=== PATIENT | female | born 1975 | race African-American/Black ===

== ENCOUNTER 2017-03-24 00:34 | Emergency (ER) | payer OTHER ==
[~2017-03-24] VITALS: Ht 157.5 cm; Wt 59.0 kg
[2017-03-24] MEDS ORDERED: NKM (00:40)
[2017-03-24 00:45] VITALS: BP 150/91
[2017-03-24] MEDS ORDERED: AMOXICILLIN500 MG ORAL (01:01)
[2017-03-24] MEDS ORDERED: IBUPROFEN600 MG ORAL (01:01)
[2017-03-24 01:05] VITALS: BP 150/91
--- NOTE | 2017-03-24 01:57 | Emergency Room Report ---
History of Present Illness General Chief Complaint: Earache Source: Patient Present Illness HPI 41-year-old female presents ED complaining of left ear pain. Started 3 days ago. States she has history of frequent ear infections. Was prescribed antibiotics for an ear infection approximately 4 months ago. Patient was told that she needs to followup with ENT as outpatient. Has not scheduled appointment yet. Denies fevers or chills. Denies cough. Denies sick contacts or recent travel. No other aggravating or leading factors. Denies any other associated symptom Allergies: Coded Allergies: No Known Allergies (Unverified , 03/24/17) Patient History Past Medical History: arrhyth Past Surgical History: none Pertinent Family History: none Social History: Denies: smoking, alcohol use, drug use Last Menstrual Period: 1 week ago Now: No Immunizations: UTD Reviewed Nursing Documentation: PMH: Agreed, PSxH: Agreed Nursing Documentation-PMH Past Medical History: No History, Except For Hx Cardiac Problems: Yes - SVT Hx Gastrointestinal Problems: No - Ovarian cyst Review of Systems All Other Systems: negative except mentioned in HPI Physical Exam Vital Signs Date Time Temp Pulse Resp B/P (MAP) Pulse Ox O2 Delivery O2 Flow Rate FiO2 03/24/17 00:37 98.1 99 15 150/91 98 Room Air Sp02 EP Interpretation: reviewed, normal General Appearance: no apparent distress, alert, GCS 15, non-toxic Head: normocephalic Eyes: bilateral eye normal inspection, bilateral eye PERRL ENT: hearing grossly normal, normal pharynx, no angioedema, normal voice, other - L TM poor light reflex Neck: full range of motion, supple/symm/no masses Respiratory: normal inspection Cardiovascular #1: normal inspection Gastrointestinal: normal inspection Rectal: deferred Genitourinary: no CVA tenderness Musculoskeletal: normal inspection Neurologic: alert, oriented x3, responsive, motor strength/tone normal, sensory intact, speech normal Psychiatric: normal inspection Skin: normal inspection Lymphatic: normal inspection Medical Decision Making Diagnostic Impression: Primary Impression: Otitis media Qualified Codes: H66.92 - Otitis media, unspecified, left ear ER Course Hospital Course 41-year-old F presents to ED with pain L ear. no fever. Differential diagnoses include: TM perforation, otitis externa, otitis media Clinical course Patient placed on stretcher. After initial history, physical exam reveals a young male in no acute distress. L TM poor light reflex. R TM unremarkable. Remainder of physical exam unremarkable. clinical findings consistent with otitis media Given the frequent history of ear infections I do recommend patient follow up with ENT as outpatient. Patient agrees Diagnosis - otitis media Stable and discharged to home with Rx amoxicillin, motrin. Followup with PMD. Return to ED if symptoms recur or worsen Last Vital Signs Date Time Temp Pulse Resp B/P (MAP) Pulse Ox O2 Delivery O2 Flow Rate FiO2 03/24/17 01:05 98.1 99 15 150/91 98 Room Air Status: improved Disposition: HOME, SELF-CARE Condition: Stable Scripts Ibuprofen* (MOTRIN*) 600 Mg Tablet 600 MG ORAL Q8H Y for For Pain, #30 TAB 0 Refills Prov: SANIA WHITLEY M.D. 03/24/17 Amoxicillin* (AMOXIL*) 500 Mg Capsule 500 MG ORAL THREE TIMES A DAY, #21 CAP Prov: SANIA WHITLEY M.D. 03/24/17 Patient Instructions: Otitis Media, Adult SANIA WHITLEY M.D. Mar 24, 2017 01:57
== END 2017-03-24 01:05 | disposition home or self-care (01) ==
LOC: EMR 00:57
DX: H66.92 Otitis media, unspecified, left ear (principal)
CPT/HCPCS: 99283